=== PATIENT | male | born 1955 | race Caucasian/White ===

== ENCOUNTER → 2020-03-12 | Outpatient (CLI) | payer MEDICARE ==
[~2020-03-12] MED LIST: REGADENOSON 0.4 MG/5 ML SYRINGE ONE
== END | disposition home or self-care (01) ==
LOC: CFH 06:49
PROVIDERS: ATTEND Internal Medicine Cardiovascular Disease
DX: I08.8 Other rheumatic multiple valve diseases (principal); I10 Essential (primary) hypertension
CPT/HCPCS: 78452; 93017; 93306; A9502; J2785